=== PATIENT | female | born 1975 | race Caucasian/White ===

== ENCOUNTER 2022-12-17 15:57 | Emergency (ER) | payer BC ==
[2022-12-17 16:35] LABS: EOSINOPHILS % (AUTO) 0.3 %; HGB - HEMOGLOBIN 14.4 g/dL (12.0-16.0); RED CELL DISTRIBUTION WIDTH 14.2 % (12.0-15.0)
[2022-12-17 16:45] LABS: BASOPHILS # (AUTO) 0.1 10^3/uL (0.0-0.1); BASOPHILS % (AUTO) 0.6 %; HCT - HEMATOCRIT 42.2 % (37.0-47.0); LYMPHOCYTES # (AUTO) 3.3 10^3/uL (1.5-3.5); LYMPHOCYTES % (AUTO) 25.4 %; MEAN CORPUSCULAR HEMOGLOBIN 27.6 pg (27.0-31.0); MEAN CORPUSCULAR HGB CONC 34.1 g/dL (32.0-36.0); MEAN PLATELET VOLUME 13.7 fL (7.9-10.8); MONOCYTES # (AUTO) 0.7 10^3/uL (0.0-1.0); MONOCYTES % (AUTO) 5.3 %; NEUTROPHILS # (AUTO) 8.8 10^3/uL (1.5-6.6); NEUTROPHILS % (AUTO) 68.1 %; PLT - PLATELET COUNT 284 10^3/uL (130-450); RED BLOOD COUNT 5.21 10^6/uL (4.20-5.40); WHITE BLOOD COUNT 12.9 x10^3/uL (4.8-10.8)
[2022-12-17 16:49] LABS: ALBUMIN 4.6 g/dL (3.2-5.5); ALBUMIN/GLOBULIN RATIO 1.3 (1.0-2.2); BILIRUBIN,TOTAL 0.7 mg/dL (0.2-1.0); CALCIUM 9.5 mg/dL (8.5-10.3); CREATININE 1.2 mg/dL (0.4-1.0); TOTAL PROTEIN 8.1 g/dL (6.7-8.2)
[2022-12-17 16:53] LABS: SLIDE REVIEW? Indicated
[2022-12-17 17:17] VITALS: BP 145/92
[2022-12-17 17:18] LABS: DIFFERENTIAL COMMENT MANUAL=AUTO DIFF; PLATELET ESTIMATE, MANUAL NORMAL (130-450,000) (NORMAL); PLATELET MORPHOLOGY NORMAL APPEARANCE (NORMAL); RBC MORPHOLOGY (MULTIPLE) 1+ ANISOCYTOSIS (NORMAL)
--- NOTE | 2022-12-17 17:18 | ED Physician Documentation ---
History of Present Illness - Stated complaint Stated Complaint: SOA,IRREGULAR HR - Chief complaint Chief Complaint: Cardiac - History obtained from History obtained from: Patient - History of Present Illness Timing: How many hours ago (4) Pain level max: 1 Pain level now: 1 - Additonal information Additional information: 47-year-old female presents to the emergency department complaining of palpitations. This occurred about 4 hours prior to arrival. She is unclear how fast her heart was beating. Has a history of SVT and states that this felt similar. Symptoms have not resolved. She did have chest tightness as well, she states that this is not uncommon with her SVT. She has had an ablation in the past. Last episode of SVT was approximately 1 year ago. No fevers. No chills. No leg swelling. No recent travel. No history of blood clots or PE. No history of acute coronary syndrome. Review of Systems Constitutional: denies: Fever, Chills GI: denies: Nausea, Vomiting, Diarrhea : denies: Now EGA Skin: denies: Rash PD PAST MEDICAL HISTORY - Past Medical History Past Medical History: Yes Cardiovascular: Other (SVT) - Past Surgical History General: Other (cardiac ablation) - Allergies Allergies/Adverse Reactions: Allergies Allergy/AdvReac Type Severity Reaction Status Date / Time amoxicillin Allergy Edema Verified 12/17/22 16:11 Penicillins Allergy Edema Verified 12/17/22 16:11 PD ED PE NORMAL - Vitals Vital signs reviewed: Yes - General General: Alert and oriented X 3, No acute distress - HEENT HEENT: Moist mucous membranes - Neck Neck: Supple, no meningeal sign - Cardiac Cardiac: RRR, No murmur, Strong equal pulses - Respiratory Respiratory: No respiratory distress, Clear bilaterally - Abdomen Abdomen: Soft, Non tender, Non distended - Derm Derm: Warm and dry - Extremities Extremities: No edema, No calf tenderness / cord - Neuro Neuro: Alert and oriented X 3 - Psych Psych: Normal mood, Normal affect Results - Vitals Vitals: Vital Signs - 24 hr 12/17/22 12/17/22 12/17/22 16:02 16:53 17:17 Temperature 35.8 C L Heart Rate 136 H 87 85 Respiratory 18 12 17 Rate Blood Pressure 171/112 H 145/92 H O2 Saturation 97 100 99 Oxygen O2 Source Room air - EKG (time done) 1607 EKG releavant findings:: EKG personally interpreted by author of this note. Relevant findings are: Rate: Rate (enter#) (112) Rhythm: Sinus tachycardia Brady: Normal Intervals: Normal CT QRS: Normal Ischemia: Normal ST segments - Labs Labs: Laboratory Tests 12/17/22 12/17/22 12/17/22 16:25 16:25 16:25 WBC 12.9 H RBC 5.21 Hgb 14.4 Hct 42.2 MCV 81.0 MCH 27.6 MCHC 34.1 RDW 14.2 Plt Count 284 MPV 13.7 H Neut # (Auto) 8.8 H Lymph # (Auto) 3.3 Vernon # (Auto) 0.7 Eos # (Auto) 0.0 Baso # (Auto) 0.1 Absolute Nucleated RBC 0.00 Band Neuts % (Manual) Not Reportable Abnorm Lymph % (Manual) Not Reportable Nucleated RBC % 0.0 Neutrophils # (Manual) Not Reportable Lymphocytes # (Manual) Not Reportable Monocytes # (Manual) Not Reportable Eosinophils # (Manual) Not Reportable Basophils # (Manual) Not Reportable Differential Comment MANUAL=AUTO DIFF Manual Slide Review Indicated Platelet Estimate NORMAL (130-450,000) Platelet Morphology NORMAL APPEARANCE RBC Morph Micro Appear 1+ ANISOCYTOSIS Sodium 137 Potassium 3.0 L Chloride 98 L Carbon Dioxide 22 Anion Gap 17.0 H BUN 14 Creatinine 1.2 H Estimated GFR (MDRD) 48 L Glucose 109 H Calcium 9.5 Total Bilirubin 0.7 AST 31 ALT 23 Alkaline Phosphatase 53 Troponin I High Sens 8.1 Total Protein 8.1 Albumin 4.6 Globulin 3.5 Albumin/Globulin Ratio 1.3 Lipase 33 - Rads (name of study) Chest x-ray Radiology: Final report received, See rad report PD Medical Decision Making - ED course Complexity details: reviewed results, re-evaluated patient, considered differential (No ST elevation WI, no aortic dissection, no PE, no tension pneumothorax, no aortic aneurysm), d/w patient ED course: 47-year-old female with what sounds like an episode of SVT earlier today. Has a history of same. CBC shows a mildly elevated white blood cell count at 12.9, otherwise unremarkable. Negative high-sensitivity troponin. Creatinine mildly elevated at 1.2. Mildly hypokalemic at 3.0. No old laboratory tests are available for comparison. EKG shows sinus rhythm. Heart rate is in the 80s in the emergency department. Patient is currently asymptomatic. We will have her follow-up with her doctor for further care. Patient counseled regarding signs and symptoms for which I believe and urgent re-evaluation would be necessary. Patient with good understanding of and agreement to plan and is comfortable going home at this time This document was made in part using voice recognition software. While efforts are made to proofread this document, sound alike and grammatical errors may occur. Departure - Departure Disposition: 01 Home, Self Care Clinical Impression: Palpitations Chest pain Qualifiers: Chest pain type: unspecified Qualified Code(s): R07.9 - Chest pain, unspecified Condition: Good Instructions: ED Chest Pain Atypical Unkn Cause, ED Palpitations Follow-Up: your,doctor in 1 week [Other] Comments: Please follow-up with your doctor for further care. It is likely that you had another episode of SVT. Your heart rate is back to normal. Your cardiac testing does not show any acute abnormalities. Your chest x-ray does not show any acute abnormalities. Please return if you worsen. Discharge Date/Time: 12/17/22 17:35
--- NOTE | 2022-12-17 17:21 | XRAY Report ---
PROCEDURE: Chest 1 View X-Ray INDICATIONS: Chest pain TECHNIQUE: One view of the chest was acquired. COMPARISON: None. FINDINGS: Surgical changes and devices: None. Lungs and pleura: No pleural effusions or pneumothorax. Lungs are clear. Mediastinum: Mediastinal contours appear normal. Heart size is normal. Bones and chest wall: No suspicious bony lesions. Overlying soft tissues appear unremarkable. IMPRESSION: No acute cardiopulmonary process. Reviewed by: Rafael Venegas on 12/17/2022 5:19 PM [facility] Approved by: Rafael Veengas on 12/17/2022 5:19 PM [facility] Station ID: [id number]
== END 2022-12-17 17:35 | disposition home or self-care (01) ==
LOC: ED 15:57
DX: R00.2 Palpitations (principal); R07.9 Chest pain, unspecified
CPT/HCPCS: 36415; 80053; 83690; 84484; 85025; 93005; 99283; 99284

== ENCOUNTER 2024-06-30 13:47 | Outpatient (CLI) | payer OTHER ==
--- NOTE | 2024-06-30 21:44 | XRAY Report ---
PROCEDURE: Foot 3+V BL INDICATIONS: BILATERAL FOOT PAIN TECHNIQUE: 3 views of the foot were acquired. COMPARISON: None. FINDINGS: Bones: No fractures or dislocations. No suspicious bony lesions. Minimal scattered areas of IP joyce rowing. No erosions or periarticular osteophytes. Soft tissues: No tibiotalar joint effusion. Achilles tendon appears normal. IMPRESSION: Minimal early degenerative change without osteophytes or erosions. Reviewed by: Selin Ballard MD on 06/30/2024 9:43 PM PDT Approved by: Selin Ballard MD on 06/30/2024 9:43 PM PDT Station ID: [id number]
== END 2024-06-30 13:48 | disposition home or self-care (01) ==
LOC: DI 13:47
PROVIDERS: ATTEND Student in an Organized Health Care Education/Training Program
DX: M19.072 Primary osteoarthritis, left ankle and foot (principal); M19.071 Primary osteoarthritis, right ankle and foot